=== PATIENT | female | born 1990 | race Caucasian/White ===

== ENCOUNTER 2016-07-26 22:31 | Emergency (ER) | payer OTHER, BC ==
[~2016-07-26] VITALS: Ht 167.6 cm; Wt 132.5 kg
[~2016-07-26 22:31] MED LIST: ADVAIR 250/501 DISK IH; AUGMENTIN500 MG PO; DELTASONE20 M1 PO; ORSYTHIA1 EACH PO; PROVENTIL,2.5 MG/3 M IH; VENTOLIN HFA18 GM IH
[2016-07-26 23:40] VITALS: BP 145/72
== END 2016-07-26 23:57 | disposition home or self-care (01) ==
LOC: EME 22:31
PROC: 3E0234Z Introduction of Serum, Toxoid and Vaccine into Muscle, Percutaneous Approach (ICD-10-PCS; principal; 2016-07-26)
DX: Z20.3 Contact with and (suspected) exposure to rabies (principal); Z23 Encounter for immunization
CPT/HCPCS: 99281; 99283

== ENCOUNTER 2016-07-29 21:13 | Emergency (ER) | payer OTHER, BC ==
[~2016-07-29] VITALS: Ht 167.6 cm; Wt 132.5 kg
[2016-07-29 23:01] VITALS: BP 140/65
== END 2016-07-29 23:02 | disposition home or self-care (01) ==
LOC: EME 21:13
PROC: 3E0234Z Introduction of Serum, Toxoid and Vaccine into Muscle, Percutaneous Approach (ICD-10-PCS; principal; 2016-07-29)
DX: Z20.3 Contact with and (suspected) exposure to rabies (principal); Z23 Encounter for immunization
CPT/HCPCS: 99281; 99284

== ENCOUNTER 2017-06-13 21:26 | Emergency (ER) | payer OTHER, BC ==
[~2017-06-13] VITALS: Ht 167.6 cm; Wt 135.4 kg
[2017-06-13 22:30] VITALS: BP 148/95
== END 2017-06-13 22:03 | disposition home or self-care (01) ==
LOC: EME 21:26
DX: Z04.2 Encounter for examination and observation following work accident (principal); Z20.818 Contact with and (suspected) exposure to other bacterial communicable diseases; J45.909 Unspecified asthma, uncomplicated
CPT/HCPCS: 99281; 99283